=== PATIENT | male | born 1965 | race Two or more races ===

== ENCOUNTER 2023-07-05 23:35 | Inpatient (IN) | payer MEDICAID, OTHER ==
[~2023-07-05] VITALS: Ht 185.4 cm; Wt 86.0 kg
[2023-07-05] MEDS ORDERED: ASPirin 81 mg TAB PO ONE (23:45)
[2023-07-06] VITALS (8 sets, daily range): BP systolic 140–148; BP diastolic 89–91; PULSE 82–103; RESP 16–25; TEMP 98.5; O2SAT 93–98
[2023-07-06 00:13] LABS: Basophils # (auto) 0.1 10 ^3/uL (0-0.2); Basophils % (auto) 0.6 % (0.0-2.0); Eosinophils # (auto) 0.2 10 ^3/uL (0-0.8); Eosinophils % (auto) 2.4 % (0.0-7.0); Hematocrit 50.8 % (41.0-53.0); Hemoglobin 16.6 g/dL (13.5-17.5); Lymphocytes # (auto) 3.3 10 ^3/uL (0.4-5.4); Lymphocytes % (auto) 34.6 % (10.0-50.0); Mean Corpuscular Hemoglobin 28.2 pg (28.0-32.0); Mean Corpuscular Hgb Conc. 32.8 g/dL (32.0-36.0); Mean Corpuscular Volume 86.1 fL (80.0-100.0); Monocytes # (auto) 0.8 10 ^3/uL (0-1.3); Monocytes % (auto) 8.1 % (0.0-12.0); Neutrophils # (auto) 5.1 10 ^3/uL (1.6-8.6); Neutrophils % (auto) 54.3 % (37.0-80.0); Nucleated Red Blood Cells % 0.1 %; Red Cell Distribution Width 14.5 % (11.8-14.3); White Blood Cell 9.4 10^3/uL (4.4-10.8)
[2023-07-06 00:28] LABS: Alanine Aminotransferase 10 U/L (7-40); Albumin 4.2 g/dL (3.2-4.8); Alkaline Phosphatase 91 U/L (46-116); Anion Gap 5 (5-15); Aspartate Aminotransferase 15 U/L (13-40); BUN/Creatinine Ratio 8.2 (10.0-20.0); Blood Urea Nitrogen 8 mg/dL (9-23); Calcium 9.6 mg/dL (8.7-10.4); Carbon Dioxide 28 mmol/L (20-30); Chloride 104 mmol/L (98-107); Glucose 157 mg/dL (74-106); Potassium 4.3 mmol/L (3.5-5.1); Sodium 137 mmol/L (136-145)
[2023-07-06 00:29] LABS: Bilirubin, Total 0.4 mg/dL (0.2-1.0); Total Protein 7.4 g/dL (5.7-8.2)
[2023-07-06] MEDS ORDERED: DEXTROSE (50%) 50ML SYRG IV PRN (03:15)
[2023-07-06] MEDS ORDERED: ACETAMINOPHEN 325 MG TAB PO PRN (03:15)
[2023-07-06] MEDS ORDERED: NITROGLYCERIN 0.4 MG SL TAB SL PRN (03:15)
[2023-07-06] MEDS ORDERED: ONDANSETRON HCL 4 MG/2 ML VIAL IV PRN (03:15)
[2023-07-06] MEDS ORDERED: DOCUSATE SOD 100 MG CAP PO PRN (03:15)
[2023-07-06] MEDS: SODIUM CHLORIDE 0.9% 1,000 ML IV SCH ×2 (03:44→19:55)
[2023-07-06] MEDS: HYDROcodone-ACET 5/325MG TAB PO PRN (04:00)
[2023-07-06 04:17] LABS: Urine Bacteria FEW /hpf (None Seen); Urine Blood Negative /uL (Negative); Urine Clarity Clear (Clear); Urine Color Yellow (Yellow); Urine Hyaline Cast FEW /lpf (0 - 2); Urine Protein, UAD 1+ (Negative); Urine Specific Gravity 1.013 (1.001-1.035); Urine Urobilinogen Normal (Negative); Urine WBC 1 /hpf (0 - 3)
[2023-07-06] MEDS: MORPHINE SULFATE INJ 2 MG/ml SYRG IV PRN ×4 (06:29→17:41)
[2023-07-06] MEDS: ACCU-CHEK COMFORT CURVE STRIP VI SCH ×4 (06:50→21:29)
[2023-07-06] MEDS: InsuLIN REG 1unit/0.01ml Soln (100units/ml) SC SCH ×4 (06:56→21:30)
[2023-07-06 07:54] LABS: Triglycerides 152 mg/dL (< 150)
[2023-07-06 07:55] LABS: LDL Cholesterol 104 mg/dL (< 100)
[2023-07-06 07:56] LABS: Cholesterol 152 mg/dL (< 200); HDL Cholesterol 28 mg/dL (40-59)
[2023-07-06] MEDS ORDERED: MORPHINE SULFATE INJ 2 MG/ml SYRG IV ONE (09:30)
[2023-07-06] MEDS: ASCORBIC ACID 500 MG TAB PO SCH ×2 (09:32→21:24)
[2023-07-06] MEDS: ZINC SULFATE 220mg CAP or TAB PO SCH (09:32)
[2023-07-06] MEDS: ASPirin 81 mg TAB PO SCH (09:32)
[2023-07-06] MEDS ORDERED: ENOXAPARIN SOD 40 MG/0.4 ML SYRINGE SC SCH (10:00)
[2023-07-06] MEDS: NICOTINE 14 MG/24HR TOPICAL PATCH TD SCH (10:16)
[2023-07-06] MEDS ORDERED: IOHEXOL 350 MG/ML 100ML IJ ONE (10:51)
[2023-07-06] MEDS: ATORVASTATIN 20 MG TAB PO SCH (21:24)
[2023-07-06] MEDS: ACETYLCYSTEINE ORAL for CIN 20%(200MG/ML) 4ML PO SCH (21:31)
[2023-07-06] MEDS ORDERED: ATORVASTATIN 20 MG TAB PO SCH (22:00)
[2023-07-06] MEDS ORDERED: NIAC400C2 PO (23:48)
[2023-07-06] MEDS ORDERED: ERGO8288 (23:48)
[2023-07-06] MEDS ORDERED: DOXY100C4 PO (23:48)
[2023-07-06] MEDS ORDERED: MET50T PO (23:48)
[2023-07-06] MEDS ORDERED: AMOX200S35 PO (23:48)
[2023-07-06] MEDS ORDERED: NITR0.4S29 (23:48)
[2023-07-06] MEDS ORDERED: ATO40T PO (23:48)
[2023-07-06] MEDS ORDERED: LOP2C PO (23:48)
[2023-07-06] MEDS ORDERED: ASPI81TA28 PO (23:48)
[2023-07-06] MEDS ORDERED: ISO60SRT PO (23:48)
[2023-07-06] MEDS ORDERED: TRAM50TA2 PO (23:48)
[2023-07-06] MEDS ORDERED: CHOLCAP10 PO (23:48)
[2023-07-06] MEDS ORDERED: LISI20TA56 PO (23:48)
[2023-07-06] MEDS ORDERED: INSLANTI SC (23:48)
[2023-07-06] MEDS ORDERED: VITACAP32 (23:48)
[2023-07-06] MEDS ORDERED: SEMA2INJ3 SC (23:48)
[2023-07-06] MEDS ORDERED: ALOG25TA PO (23:48)
[2023-07-07] VITALS (11 sets, daily range): BP systolic 118–141; BP diastolic 65–85; PULSE 86–106; RESP 12–20; TEMP 98.2–99.4; O2SAT 91–97
[2023-07-07] MEDS ORDERED: INFLUENZA QUAD 2023-2024 0.5 ML SYRG IM ONE (01:00)
[2023-07-07 06:31] LABS: Basophils # (auto) 0.1 10 ^3/uL (0-0.2); Eosinophils # (auto) 0.1 10 ^3/uL (0-0.8); Eosinophils % (auto) 1.3 % (0.0-7.0); Hematocrit 48.6 % (41.0-53.0); Hemoglobin 16.4 g/dL (13.5-17.5); Lymphocytes % (auto) 18.6 % (10.0-50.0); Mean Corpuscular Hemoglobin 28.7 pg (28.0-32.0); Mean Corpuscular Hgb Conc. 33.8 g/dL (32.0-36.0); Mean Corpuscular Volume 85.1 fL (80.0-100.0); Monocytes # (auto) 0.6 10 ^3/uL (0-1.3); Monocytes % (auto) 5.7 % (0.0-12.0); Neutrophils # (auto) 7.8 10 ^3/uL (1.6-8.6); Neutrophils % (auto) 73.4 % (37.0-80.0); Nucleated Red Blood Cells % 0.1 %; Red Blood Cells 5.71 10^6/uL (4.5-5.90); Red Cell Distribution Width 14.4 % (11.8-14.3); White Blood Cell 10.6 10^3/uL (4.4-10.8)
[2023-07-07 06:40] LABS: INR 1.04 (0.9-1.15); Prothrombin Time 10.9 sec (9.3-11.8)
[2023-07-07 06:44] LABS: Alanine Aminotransferase 10 U/L (7-40); Alkaline Phosphatase 88 U/L (46-116); Anion Gap 6 (5-15); Aspartate Aminotransferase 16 U/L (13-40); BUN/Creatinine Ratio 9.6 (10.0-20.0); Bilirubin, Total 0.5 mg/dL (0.2-1.0); Blood Urea Nitrogen 9 mg/dL (9-23); Calcium 9.7 mg/dL (8.5-10.1); Carbon Dioxide 24 mmol/L (20-30); Chloride 105 mmol/L (98-107); Glucose 157 mg/dL (74-106); Potassium 4.1 mmol/L (3.5-5.1); Sodium 135 mmol/L (136-145); Total Protein 7.1 g/dL (5.7-8.2)
[2023-07-07] MEDS: ACCU-CHEK COMFORT CURVE STRIP VI SCH ×4 (06:51→22:28)
[2023-07-07] MEDS: InsuLIN REG 1unit/0.01ml Soln (100units/ml) SC SCH ×4 (06:51→22:42)
[2023-07-07] MEDS ORDERED: ANGIOMAX 250 MG VIAL IV ONE (11:41)
[2023-07-07] MEDS ORDERED: SODIUM CHL 0.9% 0 ML ONE (11:42)
[2023-07-07] MEDS ORDERED: IODIXANOL 320MG/ML 100ML BTL IV ONE (11:42)
[2023-07-07] MEDS ORDERED: VERAPAMIL 2.5MG/ML INJ 2ML VIAL IV ONE (11:42)
[2023-07-07] MEDS ORDERED: HEPARIN SODIUM (PORCINE) 5000 UNITS/ML 1ML VIAL ONE (11:42)
[2023-07-07] MEDS ORDERED: MIDAZOLAM HCL 2MG/2ML 2ml VIAL (1mg/ml) ONE (11:42)
[2023-07-07] MEDS ORDERED: LIDOCAINE 2%HCL (LOCAL ANESTH.) INJ 20ML MDV ONE (11:42)
[2023-07-07] MEDS ORDERED: fentaNYL CITRATE 100 MCG/2 ML VL ONE (11:42)
[2023-07-07] MEDS: SODIUM CHLORIDE 0.9% 1,000 ML IV SCH (12:35)
[2023-07-07] MEDS: ZINC SULFATE 220mg CAP or TAB PO SCH (14:16)
[2023-07-07] MEDS: ASPirin 81 mg TAB PO SCH (14:16)
[2023-07-07] MEDS: ASCORBIC ACID 500 MG TAB PO SCH ×2 (14:16→22:28)
[2023-07-07] MEDS: NICOTINE 14 MG/24HR TOPICAL PATCH TD SCH (14:17)
[2023-07-07] MEDS: ACETYLCYSTEINE ORAL for CIN 20%(200MG/ML) 4ML PO SCH ×2 (14:24→22:35)
[2023-07-07] MEDS: ATORVASTATIN 20 MG TAB PO SCH (22:28)
[2023-07-08] VITALS (7 sets, daily range): BP systolic 121–147; BP diastolic 76–90; PULSE 67–106; RESP 16–19; TEMP 97.5–99.1; O2SAT 94–99
[2023-07-08] MEDS: SODIUM CHLORIDE 0.9% 1,000 ML IV SCH ×2 (05:30→19:37)
[2023-07-08] MEDS: InsuLIN REG 1unit/0.01ml Soln (100units/ml) SC SCH ×4 (06:04→21:40)
[2023-07-08] MEDS: ACCU-CHEK COMFORT CURVE STRIP VI SCH ×4 (06:05→21:55)
[2023-07-08] MEDS: ASCORBIC ACID 500 MG TAB PO SCH ×2 (10:32→10:35)
[2023-07-08] MEDS: NICOTINE 14 MG/24HR TOPICAL PATCH TD SCH (10:33)
[2023-07-08] MEDS: ZINC SULFATE 220mg CAP or TAB PO SCH (10:33)
[2023-07-08] MEDS: ASPirin 81 mg TAB PO SCH (10:33)
[2023-07-08] MEDS: HYDROcodone-ACET 5/325MG TAB PO PRN ×2 (10:39→19:36)
[2023-07-08] MEDS: ACETYLCYSTEINE ORAL for CIN 20%(200MG/ML) 4ML PO SCH (11:08)
[2023-07-08] MEDS: ATORVASTATIN 20 MG TAB PO SCH (21:41)
[2023-07-08] MEDS: MORPHINE SULFATE INJ 2 MG/ml SYRG IV PRN (21:43)
[2023-07-08] MEDS ORDERED: ENOXAPARIN SOD 80 MG/0.8ML SYRINGE SC SCH (22:00)
[2023-07-09] VITALS (7 sets, daily range): BP systolic 128–144; BP diastolic 76–89; PULSE 78–102; RESP 18–20; TEMP 97.7–98.8; O2SAT 93–98
[2023-07-09] MEDS: SODIUM CHLORIDE 0.9% 1,000 ML IV SCH (02:49)
[2023-07-09] MEDS: ACCU-CHEK COMFORT CURVE STRIP VI SCH ×4 (05:24→21:49)
[2023-07-09] MEDS: InsuLIN REG 1unit/0.01ml Soln (100units/ml) SC SCH ×4 (05:25→21:49)
[2023-07-09] MEDS: ASPirin 81 mg TAB PO SCH (09:39)
[2023-07-09] MEDS: NICOTINE 14 MG/24HR TOPICAL PATCH TD SCH (09:41)
[2023-07-09] MEDS: MORPHINE SULFATE INJ 2 MG/ml SYRG IV PRN (17:35)
[2023-07-09] MEDS: ATORVASTATIN 20 MG TAB PO SCH (21:45)
[2023-07-10] VITALS (7 sets, daily range): BP systolic 119–139; BP diastolic 75–89; PULSE 76–91; RESP 16–22; TEMP 98–98.3; O2SAT 94–100
[2023-07-10] MEDS: InsuLIN REG 1unit/0.01ml Soln (100units/ml) SC SCH ×4 (06:37→22:16)
[2023-07-10] MEDS: ACCU-CHEK COMFORT CURVE STRIP VI SCH ×4 (06:39→22:18)
[2023-07-10] MEDS: SODIUM CHLORIDE 0.9% 1,000 ML IV SCH (06:42)
[2023-07-10] MEDS: ASPirin 81 mg TAB PO SCH (10:06)
[2023-07-10] MEDS: NICOTINE 14 MG/24HR TOPICAL PATCH TD SCH (10:55)
[2023-07-10] MEDS ORDERED: levoFLOXacin 500 MG TAB PO ONE (15:15)
[2023-07-10] MEDS: ATORVASTATIN 20 MG TAB PO SCH (21:18)
[2023-07-10] MEDS: MORPHINE SULFATE INJ 2 MG/ml SYRG IV PRN (23:12)
[2023-07-11] VITALS (8 sets, daily range): BP systolic 122–144; BP diastolic 70–82; PULSE 73–96; RESP 14–20; TEMP 97.7–98.2; O2SAT 96–99
[2023-07-11 03:21] LABS: Urine Bacteria NONE SEEN /hpf (None Seen); Urine Blood Negative /uL (Negative); Urine Clarity Clear (Clear); Urine Protein, UAD TRACE (Negative); Urine Specific Gravity 1.007 (1.001-1.035); Urine Urobilinogen Normal (Negative); Urine WBC <1 /hpf (0 - 3)
[2023-07-11 03:32] LABS: Urine Color STRAW (Yellow)
[2023-07-11] MEDS: ACCU-CHEK COMFORT CURVE STRIP VI SCH ×3 (06:30→17:00)
[2023-07-11] MEDS: InsuLIN REG 1unit/0.01ml Soln (100units/ml) SC SCH ×3 (06:32→17:00)
[2023-07-11 06:49] LABS: Basophils # (auto) 0.1 10 ^3/uL (0-0.2); Basophils % (auto) 1.1 % (0.0-2.0); Eosinophils # (auto) 0.2 10 ^3/uL (0-0.8); Eosinophils % (auto) 1.7 % (0.0-7.0); Hematocrit 49.3 % (41.0-53.0); Hemoglobin 16.3 g/dL (13.5-17.5); Lymphocytes # (auto) 2.6 10 ^3/uL (0.4-5.4); Lymphocytes % (auto) 20.7 % (10.0-50.0); Mean Corpuscular Hemoglobin 28.5 pg (28.0-32.0); Mean Corpuscular Hgb Conc. 33.2 g/dL (32.0-36.0); Mean Corpuscular Volume 85.8 fL (80.0-100.0); Monocytes # (auto) 1.1 10 ^3/uL (0-1.3); Monocytes % (auto) 8.4 % (0.0-12.0); Neutrophils # (auto) 8.6 10 ^3/uL (1.6-8.6); Neutrophils % (auto) 68.1 % (37.0-80.0); Nucleated Red Blood Cells % 0.1 %; Red Blood Cells 5.74 10^6/uL (4.5-5.90); Red Cell Distribution Width 14.2 % (11.8-14.3); White Blood Cell 12.6 10^3/uL (4.4-10.8)
[2023-07-11 06:58] LABS: Anion Gap 7 (5-15); Carbon Dioxide 23 mmol/L (20-30); Chloride 103 mmol/L (98-107); Sodium 133 mmol/L (136-145)
[2023-07-11 06:59] LABS: Calcium 9.6 mg/dL (8.7-10.4)
[2023-07-11 07:02] LABS: INR 1.17 (0.9-1.15); Partial Thromboplastin Time 29.9 SEC (24.5-34.5); Prothrombin Time 12.2 sec (9.3-11.8)
[2023-07-11 07:04] LABS: BUN/Creatinine Ratio 7.1 (10.0-20.0); Blood Urea Nitrogen 6 mg/dL (9-23); Glucose 131 mg/dL (74-106)
[2023-07-11] MEDS ORDERED: levoFLOXacin 500 MG TAB PO SCH (10:00)
[2023-07-11] MEDS: ASPirin 81 mg TAB PO SCH (10:20)
[2023-07-11] MEDS: NICOTINE 14 MG/24HR TOPICAL PATCH TD SCH (10:20)
[2023-07-11] MEDS ORDERED: VANCOMYCIN PER PHARMACY 0 MG IV SCH (11:00)
[2023-07-11] MEDS ORDERED: ARTIFICIAL TEARS 15ml EACHEYE PRN (12:00)
[2023-07-11] MEDS ORDERED: VANCOMYCIN 1GM/200ML 200 ML IV ONE (12:00)
[2023-07-11] MEDS ORDERED: DexAMETHasone SOD PHOS 10MG/1ML VIAL INJ ONE (12:25)
[2023-07-11] MEDS ORDERED: KETOROLAC TROMETH 30 MG/ML 1ML VIAL ONE (12:25)
[2023-07-11] MEDS ORDERED: LIDOCAINE 1% INJ PF 5ML AMP ONE ×2 (12:25→13:51)
[2023-07-11] MEDS ORDERED: GLYCOPYRROLATE 0.2 MG/ML 1ML VIAL ONE (12:25)
[2023-07-11] MEDS ORDERED: ONDANSETRON HCL 4 MG/2 ML VIAL ONE (12:25)
[2023-07-11] MEDS ORDERED: PROPOFOL 10 MG/ML 20 ML IV ONE ×2 (12:25→13:57)
[2023-07-11] MEDS ORDERED: ceFAZolin 2 GM/D5W100ml 100 ML IV ONE (12:28)
[2023-07-11] MEDS ORDERED: KETAMINE 50mg/ML 1ml syringe ONE (13:35)
[2023-07-11] MEDS ORDERED: METOPROLOL TARTRATE 1MG/1ML-5ML VIAL IV ONE (13:58)
[2023-07-11] MEDS ORDERED: VANCOMYCIN 1GM/200ML 200 ML IV SCH (22:00)
[2023-07-12] MEDS ORDERED: CEFTRIAXONE SODIUM 2 GM in D5W 5% 100 ML IV SCH (10:00)
== END 2023-07-11 20:06 | disposition short-term general hospital (02) | DRG 180 ==
LOC: ER 23:35 → EDSEX 23:35 → EDBD 23:35 → TELE 07-06 03:17 → TELE-CENTR 07-06 22:03
PROVIDERS: ADMIT Nurse Practitioner Family; ATTEND Internal Medicine Geriatric Medicine
PROC: B2111ZZ Fluoroscopy of Multiple Coronary Arteries using Low Osmolar Contrast (ICD-10-PCS; principal; 2023-07-07)
PROC: 4A023N7 Measurement of Cardiac Sampling and Pressure, Left Heart, Percutaneous Approach (ICD-10-PCS; 2023-07-07)
PROC: 0Y6N0ZB Detachment at Left Foot, Partial 2nd Ray, Open Approach (ICD-10-PCS; 2023-07-11)
DX: I24.9 Acute ischemic heart disease, unspecified (principal); E11.621 Type 2 diabetes mellitus with foot ulcer; L97.529 Non-pressure chronic ulcer of other part of left foot with unspecified severity; E11.69 Type 2 diabetes mellitus with other specified complication; E78.5 Hyperlipidemia, unspecified; E11.65 Type 2 diabetes mellitus with hyperglycemia; I10 Essential (primary) hypertension; F17.210 Nicotine dependence, cigarettes, uncomplicated; I25.110 Atherosclerotic heart disease of native coronary artery with unstable angina pectoris; M86.8X7 Other osteomyelitis, ankle and foot; Z83.3 Family history of diabetes mellitus; Z95.1 Presence of aortocoronary bypass graft
CPT/HCPCS: 36415; 71045; 71275; 73620; 73630; 73718; 80048; 80053; 80061; 81001; 82962; 83036; 83880; 84443; 84484; 85025; 85379; 85610; 85730; 86850; 86900; 86901; 87070; 87075; 87205; 90686; 93005; 93306; 93458; 99152; C1894; G0378; J1100; J1815; J1885; J2250; J2405; J2704; Q9967

== ENCOUNTER → 2024-10-20 | Outpatient (CLI) | payer MEDICAID ==
[~2024-10-20] MED LIST: ALOG25TA PO; AMOX200S35 PO; ASPI81TA28 PO; ATOR-507 PO; CHOLCAP10 PO; DOXY100C4 PO; ERGO8288; HEPARIN IN NS 1000Units/500mL 0 ML ONE; INSLANTI SC; ISO60SRT PO; LISI20TA56 PO; LOPE2CAP16 PO; MET50T PO; NIAC400C2 PO; NITR0.4S29; SEMA2INJ3 SC; TRAM50TA2 PO; VITACAP32
[2024-10-20] MEDS: LIDOCAINE 2%HCL (LOCAL ANESTH.) INJ 10ml MDV ONE (08:21)
[2024-10-20] MEDS: fentaNYL CITRATE 100 MCG/2 ML VL ONE (08:27)
[2024-10-20] MEDS: MIDAZOLAM HCL 2MG/2ML 2ml VIAL (1mg/ml) ONE (08:27)
[2024-10-20 09:15] VITALS: BP 147/98; PULSE 79; RESP 11; O2SAT 97
--- NOTE | 2024-10-20 09:27 | DVH ---
XY CHEST PORTABLE, HISTORY: POST LUNG BX NOW COMPARISON: XY CHEST XRAY 1 VIEW on DOS: 07/11/23, XY CHEST PORTABLE on DOS: 07/06/23 XY CHEST XRAY 1 VIEW on DOS: 07/11/23, XY CHEST PORTABLE on DOS: 07/06/23 TECHNICAL DATA: 1 view of the chest was obtained. FINDINGS: Lines and tubes: None Cardiomediastinal silhouette: normal Pulmonary vasculature: normal Lung expansion: normal Lung airspace: normal Lung interstitium: normal Pleura: normal Pneumothorax: no Bones: Unremarkable Other: no IMPRESSION: No pneumothorax is seen.
[2024-10-20 09:30] VITALS: BP 122/86; PULSE 77; RESP 20; TEMP 98.3; O2SAT 96
--- NOTE | 2024-10-20 09:37 | DVH ---
CT CHEST WITHOUT CONTRAST, HISTORY: NODULE PROCEDURE: Informed consent was obtained. The patient was placed prone on the CT scanner. A limited l ocalization CT scan of the lung was obtained. The skin overlying the lesion was prepped with chlorhex idine which was allowed to dry and draped in sterile fashion. Time out was performed. The skin and so ft tissues were infiltrated with Xylocaine, and IV sedation was administered. With intermittent CT gu idance, a 19 gauge Temno outer coaxial guiding needle was advanced into the right lung nodule. The ne edle position was confirmed with CT scan. 2 core biopsies were obtained using Temno inner 20 gauge bi opsy needle. The specimens were sent in formalin to pathology for analysis. A visceral blood patch w as applied as the needle was withdrawn the needle was withdrawn, and post procedural CT obtained thro ugh the biopsy region. A small pneumothorax was noted, and patient was transport to recovery in stabl e condition without respiratory distress. DLP = 1203 mGy-cm. SEDATION: Dr. Ba Corbin was personally responsible for the administration of moderate sedation during the procedure performed, including the use of an independent trained observer who had no other duties during the procedure. The drugs utilized were IV fentanyl and versed (see nursing log for details). The total time of supervision by the attending physician was approximately 30 minutes. FINDINGS: Limited CT scan demonstrates an approximately 1.0 cm soft tissue nodule in the right lower lobe and the biopsy needle within the margin of the lung mass. No significant post biopsy hemorrhage or pneumothorax is noted. IMPRESSION/PLAN: CT guided lung biopsy. Pathology pending. will follow up CXRs. Bedrest for 3 hours.
[2024-10-20 10:00] VITALS: BP 133/92; PULSE 75; RESP 11; O2SAT 98
[2024-10-20 10:40] VITALS: BP 136/79; PULSE 79; RESP 20; O2SAT 97
[2024-10-20 11:10] VITALS: BP 136/90; PULSE 77; RESP 18; O2SAT 98
[2024-10-20 11:41] VITALS: BP 138/93; PULSE 77; RESP 17; O2SAT 99
--- NOTE | 2024-10-20 11:52 | DVH ---
XY CHEST PORTABLE, HISTORY: POST LUNG BX 2 HOURS COMPARISON: XY CHEST PORTABLE on DOS: 10/20/24, XY CHEST XRAY 1 VIEW on DOS: 07/11/23, XY CHEST PORTABLE on DOS: 07/06/23 XY CHEST PORTABLE on DOS: 10/20/24, XY CHEST XRAY 1 VIEW on DOS: 07/11/23, XY CHEST PORTABLE on DOS: 06/10 01/30 TECHNICAL DATA: 1 view of the chest was obtained. FINDINGS: Lines and tubes: None Cardiomediastinal silhouette: normal Pulmonary vasculature: normal Lung expansion: normal Lung airspace: normal Lung interstitium: normal Pleura: normal Pneumothorax: no Bones: Unremarkable Other: no IMPRESSION: No pneumothorax is seen.
== END | disposition home or self-care (01) ==
LOC: XYW 08:03
PROVIDERS: ATTEND Internal Medicine Pulmonary Disease
DX: R91.8 Other nonspecific abnormal finding of lung field (principal); J18.9 Pneumonia, unspecified organism
CPT/HCPCS: 32408; 71045; 71250; 88305; 88312; J2003; 10005; 77012; J2250